=== PATIENT | female | born 1950 | race Caucasian/White ===

== ENCOUNTER 2018-01-06 17:39 | Inpatient (IN) | payer OTHER ==
[2018-01-06 18:56] LABS: BASO % 0.8 % (0-2.0); EOS % 3.3 % (0-4.5); HEMATOCRIT 40.8 % (32.4-45.2); HEMOGLOBIN 13.7 GM/dL (10.7-15.3); LYMPH % 22.5 % (8-40); MCH 26.3 pg (25.7-33.7); MCHC 33.7 g/dl (32.0-36.0); MEAN CELL VOLUME 78.2 fl (80-96); MEAN PLT VOLUME 9.4 fl (7.5-11.1); MONO % 6.6 % (3.8-10.2); NEUT % 66.8 % (42.8-82.8); PLATELET COUNT 283 K/MM3 (134-434); RBC 5.21 M/mm3 (3.60-5.2); RDW 12.9 % (11.6-15.6); WHITE BLOOD COUNT 10.5 K/mm3 (4.0-10.0)
--- NOTE | 2018-01-06 19:16 | PDOC ---
History of Present Illness - General Chief Complaint: Chest Pain Stated Complaint: CHEST PAIN Time Seen by Provider: 01/06/18 18:02 History Source: Patient Exam Limitations: No Limitations - History of Present Illness Initial Comments: 01/06/18 19:17 67F with pmh of Diabetes, cholecystectomy and HTN presents with 3 episodes of epigastric pain for the past 3 days. The pain comes and goes after a few minutes. LAst one was around 3-4 am The pain radiates up from the epigastrium to the lower jaw. Never had those symptoms before. Currently asymptomatic. 01/06/18 20:12 Past History - Past Medical History Allergies/Adverse Reactions: Allergies Allergy/AdvReac Type Severity Reaction Status Date / Time No Known Drug Allergies Allergy Verified 11/18/11 14:26 SHRIMP Allergy Intermediate Swelling Uncoded 11/15/11 08:33 Home Medications: Ambulatory Orders Aspirin [Jewels Chewable] 81 mg PO DAILY 01/06/18 Atenolol/Chlorthalidone [Atenolol-Chlorthalidone 50-25] 1 each PO DAILY Diclofenac Epolamine [Flector] 1 each TP BID 01/06/18 Losartan Potassium [Cozaar -] 100 mg PO DAILY 01/06/18 Rosuvastatin [Crestor -] 10 mg PO DAILY 01/06/18 Vitamin B Complex 1 each PO DAILY 01/06/18 Anemia: No Asthma: No Cancer: No Cardiac Disorders: No CVA: No COPD: No CHF: No Dementia: No Diabetes: Yes (NIDDM) GI Disorders: No Disorders: No HTN: Yes Hypercholesterolemia: Yes Liver Disease: No Seizures: No Thyroid Disease: No - Surgical History Abdominal Surgery: No Appendectomy: No Cardiac Surgery: No Cholecystectomy: Yes Lung Surgery: No Neurologic Surgery: No Orthopedic Surgery: No - Suicide/Smoking/Psychosocial Hx Smoking History: Never smoked Have you smoked in the past 12 months: No Hx Alcohol Use: No Drug/Substance Use Hx: No Substance Use Type: None Hx Substance Use Treatment: No Cardiac Specific PMH - Complaint Specific PMHX Pacemaker: No Review of Systems - Review of Systems Able to Perform ROS?: Yes Is the patient limited Eritrean proficient: No Constitutional: No: Symptoms Reported HEENTM: No: Symptoms Reported Respiratory: No: Symptoms reported Cardiac (ROS): No: Symptoms Reported ABD/GI: Yes: See HPI : No: Symptoms Reported Musculoskeletal: No: Symptoms Reported Integumentary: No: Symptoms Reported Neurological: No: Symptoms reported All Other Systems: Reviewed and Negative *Physical Exam - Vital Signs Last Vital Signs Temp Pulse Resp BP Pulse Ox 98 F 58 L 18 136/90 99 01/06/18 17:57 01/06/18 17:57 01/06/18 17:57 01/06/18 17:57 01/06/18 17:57 - Physical Exam General Appearance: Yes: Nourished, Appropriately Dressed, Apparent Distress HEENT: positive: EOMI, EDWAR, Normal ENT Inspection Respiratory/Chest: positive: Lungs Clear, Normal Breath Sounds. negative: Chest Tender, Respiratory Distress Cardiovascular: positive: Regular Rate, S1, S2, Bradycardia Gastrointestinal/Abdominal: positive: Normal Bowel Sounds, Flat, Soft. negative : Tender Musculoskeletal: positive: Normal Inspection Extremity: positive: Normal Capillary Refill, Normal Inspection, Normal Range of Motion Heart Score/ECG Review - History History: Slightly suspicious - Electrocardiogram EKG: Normal - Age Age: >/= 65 - Risk Factors Risk Factors Heart Score: Yes Hx Hypercholesterolemia, Yes Hx Hypertension, Yes Hx Diabetes Based on the list above the patient has:: >/=3 risk factors or Hx atherosclerotic disease - Troponin Troponin: </= normal limit - Score Heart Score - Total: 4 ED Treatment Course - LABORATORY CBC & Chemistry Diagram: 01/06/18 18:43 01/06/18 18:51 - ADDITIONAL ORDERS Additional order review: Laboratory Results 01/06/18 01/06/18 18:51 18:43 WBC 10.5 H RBC 5.21 H Hgb 13.7 Hct 40.8 D MCV 78.2 L MCH 26.3 MCHC 33.7 RDW 12.9 D Plt Count 283 MPV 9.4 Absolute Neuts (auto) 7.0 Neutrophils % 66.8 Lymphocytes % 22.5 D Monocytes % 6.6 Eosinophils % 3.3 Basophils % 0.8 Nucleated RBC % 0 Sodium 142 Potassium 3.6 Chloride 102 Carbon Dioxide 31 Anion Gap 9 BUN 23 H Creatinine 0.7 Creat Clearance w eGFR > 60 Random Glucose 79 Calcium 10.1 Total Bilirubin 0.3 AST 19 ALT 24 Alkaline Phosphatase 93 Troponin I < 0.02 Total Protein 8.4 H Albumin 3.9 01/06/18 18:43 RBC 5.21 H MCV 78.2 L MCHC 33.7 RDW 12.9 D MPV 9.4 Neutrophils % 66.8 Lymphocytes % 22.5 D Monocytes % 6.6 Eosinophils % 3.3 Basophils % 0.8 - RADIOLOGY Radiology Studies Ordered: Category Date Time Status CHEST PA & LAT [RAD] Stat Radiology 01/06/18 18:41 Taken Medical Decision Making - Medical Decision Making 01/06/18 19:48 dyspepsia vs GERD vs mi vs gallstones. EKG: sinus bradycardia All labs WNL. Bedside US , no gallbladder, previously surgically removed due to gallstones. 01/06/18 21:34 Normal chest xray. Will admit to [facility] obs due to heart score of 4. 01/06/18 21:36 *DC/Admit/Observation/Transfer Diagnosis at time of Disposition: Atypical chest pain - Discharge Dispostion Decision to Admit order: Yes Decision to Admit order Date/Time: Decision to Admit Order Category Date Time Status Decision to Admit to Hospital Routine Admission 01/06/18 21:37 Active - Referrals - Patient Instructions - Post Discharge Activity
[2018-01-06 19:21] LABS: ALBUMIN 3.9 g/dl (3.4-5.0); ANION GAP 9 (8-16); BILIRUBIN,TOTAL 0.3 mg/dL (0.2-1.0); BLOOD UREA NITROGEN 23 mg/dL (7-18); CALCIUM 10.1 mg/dL (8.5-10.1); CHLORIDE 102 mmol/L (98-107); CO2 31 mmol/L (21-32); CREATININE 0.7 mg/dL (0.55-1.02); GLUCOSE,RANDOM 79 mg/dL (74-106); POTASSIUM 3.6 mmol/L (3.5-5.1); SGOT/AST 19 U/L (15-37); SGPT/ALT 24 U/L (12-78); SODIUM 142 mmol/L (136-145); TOT PROT 8.4 g/dl (6.4-8.2)
[2018-01-06 19:23] LABS: ALK PHOS 93 U/L (45-117)
--- NOTE | 2018-01-06 22:48 | HP ---
CHIEF COMPLAINT: Epigastric Pain HISTORY OF PRESENT ILLNESS: This is a 67 y/o woman with a PMHx of HTN, HLD. Who presents to the ED with epigastric pain radiating to her jaw 2 days ago. Patient reports being awakened out of sleep with chest pressure that radiated too her jaw, head and mid back now resolved. Patient denies fever, chills, cough, SOB, n/V/D, constipation, dysuria. ER course was notable for: (1) Troponin I < 0.02 (2) Chest Xray- image no infiltrate or effusion (3) Recent Travel: None PAST MEDICAL HISTORY: See HPI PAST SURGICAL HISTORY: Salpingo-oophorectomy Hysterectomy SubUrethral Sling Cystocele Repair Gallstone removal Social History: Smoking: Never Alcohol: None Drugs: None Lives with spouse, Independent Family History: Allergies No Known Drug Allergies Allergy (Verified 11/18/11 14:26) SHRIMP Allergy (Intermediate, Uncoded 11/15/11 08:33) Swelling TONGUE ITCHY AND SWELLING HOME MEDICATIONS: Home Medications Medication Instructions Recorded Aspirin [Jewels Chewable] 81 mg PO DAILY 01/06/18 Atenolol/Chlorthalidone 1 each PO DAILY 01/06/18 [Atenolol-Chlorthalidone 50-25] Diclofenac Epolamine [Flector] 1 each TP BID 01/06/18 Losartan Potassium [Cozaar -] 100 mg PO DAILY 01/06/18 Rosuvastatin [Crestor -] 10 mg PO DAILY 01/06/18 Vitamin B Complex 1 each PO DAILY 01/06/18 REVIEW OF SYSTEMS CONSTITUTIONAL: Absent: fever, chills, diaphoresis, generalized weakness, malaise, loss of appetite, weight change HEENT: Absent: rhinorrhea, nasal congestion, throat pain, throat swelling, difficulty swallowing, mouth swelling, ear pain, eye pain, visual changes CARDIOVASCULAR: chest pain Absent: syncope, palpitations, irregular heart rate, lightheadedness, peripheral edema RESPIRATORY: Absent: cough, shortness of breath, dyspnea with exertion, orthopnea, wheezing, stridor, hemoptysis GASTROINTESTINAL: abdominal pain Absent: abdominal distension, nausea, vomiting, diarrhea, constipation, melena, hematochezia GENITOURINARY: Absent: dysuria, frequency, urgency, hesitancy, hematuria, flank pain, genital pain MUSCULOSKELETAL: Absent: myalgia, arthralgia, joint swelling, back pain, neck pain SKIN: Absent: rash, itching, pallor HEMATOLOGIC/IMMUNOLOGIC: Absent: easy bleeding, easy bruising, lymphadenopathy, frequent infections ENDOCRINE: Absent: unexplained weight gain, unexplained weight loss, heat intolerance, cold intolerance NEUROLOGIC: Absent: headache, focal weakness or paresthesias, dizziness, unsteady gait, seizure, mental status changes, bladder or bowel incontinence PSYCHIATRIC: Absent: anxiety, depression, suicidal or homicidal ideation, hallucinations. PHYSICAL EXAMINATION Vital Signs - 24 hr 01/06/18 17:57 Temperature 98 F Pulse Rate 58 L Respiratory 18 Rate Blood Pressure 136/90 O2 Sat by Pulse 99 Oximetry (%) GENERAL: Awake, alert, and fully oriented, in no acute distress. HEAD: Normal with no signs of trauma. EYES: Pupils equal, round and reactive to light, extraocular movements intact, sclera anicteric, conjunctiva clear. No lid lag. EARS, NOSE, THROAT: Ears normal, nares patent, oropharynx clear without exudates. Moist mucous membranes. NECK: Normal range of motion, supple without lymphadenopathy, JVD, or masses. LUNGS: Breath sounds equal, clear to auscultation bilaterally. No wheezes, and no crackles. No accessory muscle use. HEART: Regular rate and rhythm, normal S1 and S2 without murmur, rub or gallop. CP non-reproducible ABDOMEN: Soft, nontender, not distended, normoactive bowel sounds, no guarding, no rebound, no masses. No hepatomegaly or splenomegaly. MUSCULOSKELETAL: Normal range of motion at all joints. No bony deformities or tenderness. No CVA tenderness. UPPER EXTREMITIES: 2+ pulses, warm, well-perfused. No cyanosis. No clubbing. No peripheral edema. LOWER EXTREMITIES: 2+ pulses, warm, well-perfused. No calf tenderness. No peripheral edema. NEUROLOGICAL: Cranial nerves II-XII intact. Normal speech. Normal gait. PSYCHIATRIC: Cooperative. Good eye contact. Appropriate mood and affect. SKIN: Warm, dry, normal turgor, no rashes or lesions noted, normal capillary refill. Laboratory Results - last 24 hr 01/06/18 01/06/18 18:43 18:51 WBC 10.5 H RBC 5.21 H Hgb 13.7 Hct 40.8 D MCV 78.2 L MCH 26.3 MCHC 33.7 RDW 12.9 D Plt Count 283 MPV 9.4 Absolute Neuts (auto) 7.0 Neutrophils % 66.8 Lymphocytes % 22.5 D Monocytes % 6.6 Eosinophils % 3.3 Basophils % 0.8 Nucleated RBC % 0 Sodium 142 Potassium 3.6 Chloride 102 Carbon Dioxide 31 Anion Gap 9 BUN 23 H Creatinine 0.7 Creat Clearance w eGFR > 60 Random Glucose 79 Calcium 10.1 Total Bilirubin 0.3 AST 19 ALT 24 Alkaline Phosphatase 93 Troponin I < 0.02 Total Protein 8.4 H Albumin 3.9 ASSESSMENT/PLAN: This is a 67 y/o woman placed in Tele Observation for Chest Pain r/o ACS for further evaluation of their emergent condition. Plan: FEN - PO fluids as tolerated - Replete lytes prn - Low Na Diet DVT ppx - OOB - SCDs - Consider AC if LOS > 48 hrs Code Status: Full Code Dispo: Observation Problem List - Problem (1) Atypical chest pain Assessment/Plan: - Likely secondary to Acid Reflux vs ACS - HEART Score 4 - Continue Cardiac monitoring - Serial Enzymes - Appreciate Cardiology consult - Asa - Echo - Lipid Panel in am - HgbA1C Code(s): R07.89 - OTHER CHEST PAIN (2) HTN (hypertension) Assessment/Plan: - sub optimal - Likely secondary to dehydration - Monitor BP - Hold home med secondary to hypotension and bradycardia - Will give NS 250ml bolus and have day team reassess Code(s): I10 - ESSENTIAL (PRIMARY) HYPERTENSION (3) HLD (hyperlipidemia) Assessment/Plan: - stable - Continue home med Code(s): E78.5 - HYPERLIPIDEMIA, UNSPECIFIED Visit type - Emergency Visit Emergency Visit: Yes ED Registration Date: 01/06/18 Care time: The patient presented to the Emergency Department on the above date and was hospitalized for further evaluation of their emergent condition. - New Patient This patient is new to me today: Yes Date on this admission: 01/06/18 - Critical Care Critical Care patient: No Hospitalist Screening - Colonoscopy Questionnaire Colonoscopy Questionnaire: Colonoscopy Questionnaire - Patient: 50 - 75 years old and never had a screening colonoscopy: No History of colon or rectal polyps, or CA: No History of IBD, Crohn's disease or UC: No History of abdominal radiation therapy as a child: No - Relative: 1 with colon or rectal CA, or polyps at age 60 or younger: No Colon or rectal CA diagnosed at age 45 or younger: No Multiple relatives with colon or rectal CA: No - Outcome: Screening Result: Negative Screen
[2018-01-06] MEDS ORDERED: ASPIRIN 81 MG CHEWABLE TABLETS PO ONE (23:37)
--- NOTE | 2018-01-06 23:38 | PDOC ---
Attending Attestation - Resident Resident Name: Babak Vazquez - ED Attending Attestation I have performed the following: I have examined & evaluated the patient, The case was reviewed & discussed with the resident, I agree w/resident's findings & plan, Exceptions are as noted - HPI HPI: 01/06/18 23:33 67 yo F with h/o DM HTN here with /co epigastric pain radiating across her chest intermittent for the last few days. no sob. no n/v no f/c no mod factors. has had a cardiac work up over 3 years ago. ( saw dr. salguero). family h/o MA in two uncles. no n/v. prior cholecystectomy - Physicial Exam PE: 01/06/18 23:36 awake alert lungs clear bilaterally heart rrr no mrg. abd soft mild epigastric ttp. no rebound no guarding. ext wwp. no edema. no calf tenderness. pulses symmetric - Medical Decision Making 01/06/18 23:36 differential atypical angina, gerd, pancreatitis, infeciton such as gastritis, other lung pathology. plan cxr ekg trop aspirin. if negative. consider telemetry observation to r/o MA for acs. 01/06/18 23:38 pt workup negative thus far. june nfree here. due to risk factors, will observe on tele.
[2018-01-06] MEDS ORDERED: ASPIRIN 81 MG CHEWABLE TABLETS ONE (23:42)
[2018-01-07 04:36] VITALS: BMI 22.1
[2018-01-07] MEDS ORDERED: SODIUM CHLORIDE 250 ML IV STA (04:47)
[2018-01-07 07:21] LABS: BASO % 0.6 % (0-2.0); EOS % 4.7 % (0-4.5); HEMATOCRIT 35.5 % (32.4-45.2); HEMOGLOBIN 12.1 GM/dL (10.7-15.3); MCH 26.6 pg (25.7-33.7); MCHC 34.1 g/dl (32.0-36.0); MEAN CELL VOLUME 78.2 fl (80-96); MEAN PLT VOLUME 9.6 fl (7.5-11.1); MONO % 8.2 % (3.8-10.2); NEUT % 55.5 % (42.8-82.8); PLATELET COUNT 225 K/MM3 (134-434); RBC 4.54 M/mm3 (3.60-5.2); RDW 12.9 % (11.6-15.6)
[2018-01-07 07:43] LABS: ANION GAP 8 (8-16); BLOOD UREA NITROGEN 15 mg/dL (7-18); CHLORIDE 103 mmol/L (98-107); CO2 32 mmol/L (21-32); CREATININE 0.6 mg/dL (0.55-1.02); GLUCOSE,RANDOM 64 mg/dL (74-106); MAGNESIUM 1.9 mg/dL (1.8-2.4); PHOSPHOROUS 3.4 mg/dL (2.5-4.9); POTASSIUM 3.3 mmol/L (3.5-5.1); SODIUM 143 mmol/L (136-145)
[2018-01-07 07:58] LABS: CHOLESTEROL 166 mg/dL (50-200); HDL CHOLESTEROL 42 mg/dL (40-60); TRIGLYCERIDES 189 mg/dL (35-160)
--- NOTE | 2018-01-07 08:52 | PN ---
Progress Note, Physician History of Present Illness: 67F with pmh of Diabetes, cholecystectomy and HTN presents with 3 episodes of epigastric pain for the past 3 days. The pain comes and goes after a few minutes. LAst one was around 3-4 am The pain radiates up from the epigastrium to the lower jaw. Never had those symptoms before. Currently asymptomatic. - Current Medication List Current Medications: Active Medications Aspirin (Asa -) 81 mg PO DAILY KALYANI Multivitamins (Total B With C -) 1 each PO DAILY KALYANI Rosuvastatin Calcium (Crestor -) 10 mg PO DAILY KALYANI - Objective Vital Signs: Vital Signs Temperature 97.9 F 01/07/18 04:29 Pulse Rate 52 L 01/07/18 04:29 Respiratory Rate 18 01/07/18 04:29 Blood Pressure 137/74 01/07/18 04:29 O2 Sat by Pulse Oximetry (%) 97 01/07/18 03:25 Cardiovascular: Yes: S1, S2 Respiratory: Yes: Regular, CTA Bilaterally Gastrointestinal: Yes: Normal Bowel Sounds, Soft. No: Tenderness Edema: No Labs: CBC, BMP 01/07/18 06:00 01/07/18 06:00 Problem List - Problems (1) Atypical chest pain Assessment/Plan: - Likely secondary to Acid Reflux - r/o ACS - HEART Score 4 - Continue Cardiac monitoring - Serial Enzymes - Cardiology consult - Asa - PPI - Echo - Lipid Panel - HgbA1C Code(s): R07.89 - OTHER CHEST PAIN (2) HLD (hyperlipidemia) Assessment/Plan: - stable - Continue home med Code(s): E78.5 - HYPERLIPIDEMIA, UNSPECIFIED (3) HTN (hypertension) Assessment/Plan: - sub optimal==better now - Off metoprolol and losartin - Likely secondary to dehydration - Monitor BP - Hold home med secondary to hypotension and bradycardia - given NS 250ml bolus Code(s): I10 - ESSENTIAL (PRIMARY) HYPERTENSION
[2018-01-07] MEDS ORDERED: PT OWN MED DRAWER 7, Y5N ONE (09:06)
[2018-01-07] MEDS: VITAMIN B COMPLEX W/C COMBO TABLET (FP) PO SCH (09:33)
[2018-01-07] MEDS: ASPIRIN 81 MG CHEWABLE TABLETS PO SCH (09:33)
[2018-01-07] MEDS: ROSUVASTATIN CA 10 MG TABLET (FP) PO SCH (09:33)
--- NOTE | 2018-01-07 17:19 | CON.CARD ---
Consult Consult Specialty:: Cardiology Referred by:: Dr. Vargas Reason for Consultation:: chest pain - History of Present Illness Chief Complaint: chest pain History of Present Illness: 67 year old woman pmh HTN< DMII, admitted with c/o epigastric pain radiating to chest L jaw and L arm for the past few days. Pt seen and examined today in nad. states the pain comes on only when lying in bed. denies any symptoms with walking. no sob, palpitations, pnd, orthopnea, or le edema. no lightheadedness dizziness, syncope or near syncope. states she had a stress test approx 3 years ago that was normal. - History Source History Provided By: Patient, Family Member Limitations to Obtaining History: Language Barrier - Past Medical History Cardio/Vascular: Yes: HTN Endocrine: Yes: Diabetes Mellitus - Alcohol/Substance Use Hx Alcohol Use: No - Smoking History Smoking history: Never smoked Have you smoked in the past 12 months: No - Social History Usual Living Arrangement: With Child ADL: Independent History of Recent Travel: No Home Medications - Allergies Allergies/Adverse Reactions: Allergies Allergy/AdvReac Type Severity Reaction Status Date / Time No Known Drug Allergies Allergy Verified 11/18/11 14:26 SHRIMP Allergy Intermediate Swelling Uncoded 11/15/11 08:33 - Home Medications Home Medications: Ambulatory Orders Aspirin [Jewels Chewable] 81 mg PO DAILY 01/06/18 Atenolol/Chlorthalidone [Atenolol-Chlorthalidone 50-25] 1 each PO DAILY Diclofenac Epolamine [Flector] 1 each TP BID 01/06/18 Losartan Potassium [Cozaar -] 100 mg PO DAILY 01/06/18 Rosuvastatin [Crestor -] 10 mg PO DAILY 01/06/18 Vitamin B Complex 1 each PO DAILY 01/06/18 Family Disease History - Family Disease History Family History: Denies Review of Systems - Review of Systems Constitutional: denies: No Symptoms, Chills, Diaphoresis, Fever, Lethargy, Loss of Appetite, Malaise, Night Sweats, Unintentional Wgt. Loss, Weakness, Other Eyes: denies: No Symptoms, Blind Spots, Blurred Vision, Double Vision, Eye Pain , Floaters, Photophobia, Recent Change in Vision, Other HENT: denies: No Symptoms, Difficult Swallowing, Ear Discharge, Ear Pain, Epistaxis, Gingival Bleeding, Hearing Loss, Mouth Swelling, Nasal Congestion, Ocular Prosthesis, Throat Pain, Toothache, Ringing in Ears, Other Neck: denies: No Symptoms, Decreased ROM, Lumps, Pain on Movement, Stiffness, Swollen Glands, Tenderness, Other Cardiovascular: reports: Chest Pain Respiratory: denies: No Symptoms, Cough, Exercise Intolerance, Hemoptysis, Orthopnea, PND, Snoring, SOB, SOB on Exertion, Wheezing, Other Gastrointestinal: denies: No Symptoms, Abdominal Pain, Bloating, Constipation, Diarrhea, Dysphagia, Indigestion, Melena, Nausea, Rectal Bleeding, Vomiting, Vomiting Blood, Other Genitourinary: denies: No Symptoms, Burning, Discharge, Dysuria, Flank Pain, Frequency, Hematuria, Incontinence, Lesions, Menses, Pain, Testicular Mass, Testicular Pain, Testicular Swelling, Urgency, Vaginal Bleeding, Other Breasts: denies: No Symptoms Reported, See HPI, Breast Implants, Discharge from Nipple, Lumps, Pain, Skin Changes, Other Musculoskeletal: denies: No Symptoms, Back Pain, Crepitus, Decreased ROM, Extremity Pain, Joint Pain, Joint Swelling, Muscle Pain, Muscle Cramps, Muscle Weakness, Other Integumentary: denies: No Symptoms, Blister, Bruising, Change in Color, Eczema, Erythema, Incision, Lesions, Lump, Pallor, Pruritis, Rash, Wound, Other Neurological: denies: No Symptoms, Change in LOC, Change in Speech, Confusion, Dizziness, Headache, Incoordination, Numbness, Parasthesia, Pre-Existing Deficit , Seizure, Syncope, Tremors, Unsteady Gait, Weakness, Other Endocrine: denies: No Symptoms, Excessive Sweating, Flushing, Increased Hunger, Increased Thirst, Intolerance to Cold, Intolerance to Heat, Unexplained Weight Gain, Unexplained Weight Loss, Other Hematology/Lymphatic: denies: No Symptoms, Easily Bruised, Excessive Bleeding, Swollen Glands, Other Psychiatric: denies: No Symptoms, Altered Sleep Pattern, Anxiety, Depression, Hallucinations, Panic, Paranoia, Suicidal, Other - Risk Factors Known Risk Factors: Yes: Diabetes Mellitus, Hypertension Vital Signs: Vital Signs Temperature 98.3 F 01/07/18 14:00 Pulse Rate 62 01/07/18 14:00 Respiratory Rate 18 01/07/18 14:00 Blood Pressure 122/63 01/07/18 14:00 O2 Sat by Pulse Oximetry (%) 98 01/07/18 10:00 Constitutional: Yes: Well Nourished, No Distress, Calm Eyes: Yes: WNL, Conjunctiva Clear, EOM Intact, PERRL HENT: Yes: WNL, Atraumatic, Normocephalic Neck: Yes: WNL, Supple, Trachea Midline Respiratory: Yes: WNL, Regular, CTA Bilaterally. No: Rales, Rhonchi, Wheezes Gastrointestinal: Yes: WNL, Normal Bowel Sounds, Soft. No: Distention, Tenderness Renal/: Yes: WNL Cardiovascular: Yes: WNL, Regular Rate and Rhythm. No: Bradycardia, Tachycardia , Pulse Irregular, Gallop, Rub, Varicosities JVD: No Carotid Bruit: No PMI: Non-Displaced Heart Sounds: Yes: S1, S2. No: Split S2, S3, S4, Clicks, Gallop, Rub, Bruit Murmur: No: Systolic Murmur, Diastolic Murmur Musculoskeletal: Yes: WNL Extremities: Yes: WNL Edema: No Peripheral Pulses WNL: Yes Peripheral Pulses: 2+ Left Doralis Pedis, 2+ Right Dorsalis Pedis Integumentary: Yes: WNL Neurological: Yes: WNL, Alert, Oriented ...Motor Strength: WNL Psychiatric: Yes: WNL, Alert, Oriented - Other Data Labs, Other Data: CBC, BMP 01/07/18 06:00 01/07/18 06:00 Troponin, BNP 01/06/18 01/07/18 01/07/18 18:51 01:26 06:00 Troponin I < 0.02 < 0.02 < 0.02 Troponin, BNP 01/06/18 01/07/18 01/07/18 18:51 01:26 06:00 Troponin I < 0.02 < 0.02 < 0.02 not in emr, will report separately, reportedly no ischemia Imaging - Results Chest X-ray: Report Reviewed, Image Reviewed EKG: Report Reviewed, Image Reviewed Other: Report Reviewed, Image Reviewed (tele-nsr, sb, artifact) Assessment/Plan 67 year old woman pmh HTN< DMII, admitted with c/o epigastric pain radiating to chest L jaw and L arm for the past few days. Pt seen and examined today in nad. states the pain comes on only when lying in bed. denies any symptoms with walking. no sob, palpitations, pnd, orthopnea, or le edema. no lightheadedness dizziness, syncope or near syncope. states she had a stress test approx 3 years ago that was normal. chest pain-atypical but with mult risk factors and radiation to jaw and L arm and pt does very little activity, no exercise thus difficult to fully assess -cardiac enzymes wnl x 3 -no sig events on telemetry -no chest pain since admission -would recc exercise nuclear stress test on tuesday and echo -keep npo after midnight tuesday night for stress test tuesday -cont asa and statin -no bblocker for sinus calos -cont tele
--- NOTE | 2018-01-07 19:01 | EKG ---
Test Reason : Blood Pressure : / mmHG Vent. Rate : 051 BPM Atrial Rate : 051 BPM P-R Int : 150 ms QRS Dur : 084 ms QT Int : 434 ms P-R-T Axes : 018 -27 -02 degrees QTc Int : 400 ms SINUS BRADYCARDIA LOW VOLTAGE QRS CANNOT RULE OUT ANTERIOR INFARCT , AGE UNDETERMINED ABNORMAL ECG WHEN COMPARED WITH ECG OF 13-NOV-2011 10:24, NO SIGNIFICANT CHANGE WAS FOUND Confirmed by MD DUKE, DENISE ([id number]) on 01/07/2018 7:01:23 PM Referred By: Confirmed By:DENISE WALL MD
--- NOTE | 2018-01-08 08:27 | PN ---
Progress Note, Physician - Current Medication List Current Medications: Active Medications Aspirin (Asa -) 81 mg PO DAILY [facility] Last Admin: 01/07/18 09:33 Dose: 81 mg Multivitamins (Total B With C -) 1 each PO DAILY [facility] Last Admin: 01/07/18 09:33 Dose: 1 each Rosuvastatin Calcium (Crestor -) 10 mg PO DAILY [facility] Last Admin: 01/07/18 09:33 Dose: 10 mg - Objective Vital Signs: Vital Signs Temperature 98 F 01/08/18 05:51 Pulse Rate 54 L 01/08/18 05:51 Respiratory Rate 16 01/08/18 05:51 Blood Pressure 106/58 01/08/18 05:51 O2 Sat by Pulse Oximetry (%) 99 01/08/18 05:00 Cardiovascular: Yes: Regular Rate and Rhythm Respiratory: Yes: Regular, CTA Bilaterally Gastrointestinal: Yes: Normal Bowel Sounds, Soft Labs: CBC, BMP 01/07/18 06:00 01/07/18 06:00 Problem List - Problems (1) Atypical chest pain Assessment/Plan: - Likely secondary to Acid Reflux - r/o ACS - HEART Score 4 - Continue Cardiac monitoring - Serial Enzymes - Cardiology consult - Asa - PPI - Echo and stress test - Lipid Panel - HgbA1C Code(s): R07.89 - OTHER CHEST PAIN (2) HLD (hyperlipidemia) Assessment/Plan: - stable - Continue home med Code(s): E78.5 - HYPERLIPIDEMIA, UNSPECIFIED (3) HTN (hypertension) Assessment/Plan: - sub optimal==better now - Off metoprolol and losartin - Likely secondary to dehydration - Monitor BP - Hold home med secondary to hypotension and bradycardia - given NS 250ml bolus Code(s): I10 - ESSENTIAL (PRIMARY) HYPERTENSION
[2018-01-08] MEDS: ROSUVASTATIN CA 10 MG TABLET (FP) PO SCH (09:39)
[2018-01-08] MEDS: ASPIRIN 81 MG CHEWABLE TABLETS PO SCH (09:40)
[2018-01-08] MEDS: VITAMIN B COMPLEX W/C COMBO TABLET (FP) PO SCH (10:14)
--- NOTE | 2018-01-08 16:52 | PN ---
Progress Note, Physician History of Present Illness: seen and examined today in [facility]. no new complaints. no overnight events. - Current Medication List Current Medications: Active Medications Aspirin (Asa -) 81 mg PO DAILY [facility] Last Admin: 01/08/18 09:40 Dose: 81 mg Multivitamins (Total B With C -) 1 each PO DAILY [facility] Last Admin: 01/08/18 10:14 Dose: 1 each Rosuvastatin Calcium (Crestor -) 10 mg PO DAILY [facility] Last Admin: 01/08/18 09:39 Dose: 10 mg - Objective Vital Signs: Vital Signs Temperature 97.8 F 01/08/18 13:56 Pulse Rate 61 01/08/18 13:56 Respiratory Rate 16 01/08/18 13:56 Blood Pressure 98/56 01/08/18 13:56 O2 Sat by Pulse Oximetry (%) 99 01/08/18 09:37 Constitutional: Yes: No Distress, Calm Eyes: Yes: Conjunctiva Clear, EOM Intact HENT: Yes: Atraumatic, Normocephalic Neck: Yes: Supple, Trachea Midline Cardiovascular: Yes: Regular Rate and Rhythm, S1, S2. No: Bradycardia, Tachycardia, Pulse Irregular, Bruit, JVD, Gallop, Murmur, Rub, S3, S4, Varicosities Respiratory: Yes: Regular, CTA Bilaterally. No: Rales, Rhonchi, Wheezes Gastrointestinal: Yes: Normal Bowel Sounds, Soft. No: Distention, Tenderness Genitourinary: Yes: WNL Breast(s): Yes: WNL Musculoskeletal: Yes: WNL Extremities: Yes: WNL Edema: No Peripheral Pulses WNL: No Peripheral Pulses: Left Doralis Pedis: 2+, Right Dorsalis Pedis: 2+ Integumentary: Yes: WNL Neurological: Yes: Alert, Oriented Psychiatric: Yes: Alert, Oriented Labs: CBC, BMP 01/07/18 06:00 01/07/18 06:00 - ....Imaging Chest X-ray: Report Reviewed, Image Reviewed EKG: Report Reviewed, Image Reviewed Other: Report Reviewed, Image Reviewed (tele-NSR, artifact which is reproduced by pt lifting her R arm especially when using her cell phone, witnessed and reproduced at bedside. No arrhythmias recorded.) Assessment/Plan 67 year old woman pmh HTN< DMII, admitted with c/o epigastric pain radiating to chest L jaw and L arm for the past few days. Pt seen and examined today in [facility]. states the pain comes on only when lying in bed. denies any symptoms with walking. no sob, palpitations, pnd, orthopnea, or le edema. no lightheadedness dizziness, syncope or near syncope. states she had a stress test approx 3 years ago that was normal. chest pain-atypical but with mult risk factors and radiation to jaw and L arm and pt does very little activity, no exercise thus difficult to fully assess -cardiac enzymes wnl x 3 -no sig events on telemetry -no chest pain since admission -plan is for exercise nuclear stress test tomorrow and echo -keep npo after midnight tonight for stress test tomorrow -cont asa and statin -no bblocker for sinus calos -cont tele tele-NSR, artifact which is reproduced by pt lifting her R arm especially when using her cell phone, witnessed and reproduced at bedside. No arrhythmias recorded.
--- NOTE | 2018-01-09 08:37 | PN ---
Progress Note, Physician - Current Medication List Current Medications: Active Medications Aspirin (Asa -) 81 mg PO DAILY [facility] Last Admin: 01/08/18 09:40 Dose: 81 mg Multivitamins (Total B With C -) 1 each PO DAILY [facility] Last Admin: 01/08/18 10:14 Dose: 1 each Rosuvastatin Calcium (Crestor -) 10 mg PO DAILY [facility] Last Admin: 01/08/18 09:39 Dose: 10 mg - Objective Vital Signs: Vital Signs Temperature 97.9 F 01/09/18 06:00 Pulse Rate 51 L 01/09/18 06:00 Respiratory Rate 16 01/09/18 06:00 Blood Pressure 109/49 01/09/18 06:00 O2 Sat by Pulse Oximetry (%) 97 01/08/18 21:00 Cardiovascular: Yes: Regular Rate and Rhythm Respiratory: Yes: Regular, CTA Bilaterally Gastrointestinal: Yes: Normal Bowel Sounds, Soft Labs: CBC, BMP 01/07/18 06:00 01/07/18 06:00 Problem List - Problems (1) Atypical chest pain Assessment/Plan: - Likely secondary to Acid Reflux - r/o ACS - HEART Score 4 - Continue Cardiac monitoring - Serial Enzymes - Cardiology consult - Asa - PPI - Echo and stress test - Lipid Panel - HgbA1C Code(s): R07.89 - OTHER CHEST PAIN (2) HLD (hyperlipidemia) Assessment/Plan: - stable - Continue home med Code(s): E78.5 - HYPERLIPIDEMIA, UNSPECIFIED (3) HTN (hypertension) Assessment/Plan: - sub optimal==better now - Off metoprolol and losartin - Likely secondary to dehydration - Monitor BP - Hold home med secondary to hypotension and bradycardia - given NS 250ml bolus Code(s): I10 - ESSENTIAL (PRIMARY) HYPERTENSION (4) Hypokalemia Assessment/Plan: cmp Code(s): E87.6 - HYPOKALEMIA
[2018-01-09] MEDS: ASPIRIN 81 MG CHEWABLE TABLETS PO SCH (09:22)
[2018-01-09] MEDS: ROSUVASTATIN CA 10 MG TABLET (FP) PO SCH (09:22)
[2018-01-09] MEDS: VITAMIN B COMPLEX W/C COMBO TABLET (FP) PO SCH (09:22)
--- NOTE | 2018-01-09 11:33 | ECHO ---
Name: ARMANI DRISCOLL Exam:Adult Echocardiogram Study Date: 01/09/2018 07:39 AM Age: 67 yrs Reason For Study: Chest pain Height: 59 in Weight: 108 lb BSA: 1.4 m2 MMode/2D Measurements & Calculations IVSd: 0.91 cm Ao root diam: 2.4 cm LVIDd: 3.7 cm LA dimension: 3.1 cm LVIDs: 2.0 cm LVPWd: 0.90 cm EDV(Teich): 57.6 ml ESV(Teich): 12.7 ml Doppler Measurements & Calculations MV E max ben: 87.0 cm/sec MR max ben: 260.6 cm/sec MV A max ben: 117.1 cm/sec MR max P.2 mmHg MV E/A: 0.74 MV dec time: 0.40 sec TR max ben: 154.7 cm/sec Med Peak E' Ben: 6.5 cm/sec TR max P.8 mmHg Med E/e': 13.3 Lat Peak E' Ben: 8.7 cm/sec Lat E/e': 10.0 PI Vmax: 142.5 cm/sec Procedure The study was technically adequate with some images being suboptimal in quality. Left Ventricle The left ventricular size, thickness and function are normal. Ejection Fraction = 60-65%. Grade I tia stolic dysfunction, (abnormal relaxation pattern). Right Ventricle The right ventricle is normal in size and function. Atria Normal left and right atrial size and function. Non-dilated IVC 1.53 cm. Mitral Valve The mitral valve is grossly normal. There is trace mitral regurgitation. Tricuspid Valve The tricuspid valve is not well visualized, but is grossly normal. There is trace tricuspid regurgita tion. There was insufficient TR detected to calculate RV systolic pressure. Aortic Valve The aortic valve opens well. The aortic valve is trileaflet. Trace aortic regurgitation. Pulmonic Valve The pulmonic valve is not well visualized. Trace pulmonic valvular regurgitation. Great Vessels The aortic root is normal size. Pericardium/Pleura There is no pericardial effusion. Interpretation Summary There is no comparison study available. The right ventricle is normal in size and function. The left ventricular size, thickness and function are normal Trace aortic regurgitation. There is trace mitral regurgitation. There is trace tricuspid regurgitation. Trace pulmonic valvular regurgitation. Ejection Fraction = 60-65%. Grade I diastolic dysfunction, (abnormal relaxation pattern). Jake Paez MD 01/09/2018 11:32 AM
--- NOTE | 2018-01-09 14:16 | PN ---
Progress Note, Physician Chief Complaint: no new events tele neg History of Present Illness: 67 year old woman pmh HTN< DMII, admitted with c/o epigastric pain radiating to chest L jaw and L arm for the past few days. Pt seen and examined today in [facility]. states the pain comes on only when lying in bed. denies any symptoms with walking. no sob, palpitations, pnd, orthopnea, or le edema. no lightheadedness dizziness, syncope or near syncope. states she had a stress test approx 3 years ago that was normal. hypokalemia repleted. - Current Medication List Current Medications: Active Medications Aspirin (Asa -) 81 mg PO DAILY [facility] Last Admin: 01/09/18 09:22 Dose: Not Given Multivitamins (Total B With C -) 1 each PO DAILY [facility] Last Admin: 01/09/18 09:22 Dose: Not Given Rosuvastatin Calcium (Crestor -) 10 mg PO DAILY [facility] Last Admin: 01/09/18 09:22 Dose: Not Given - Objective Vital Signs: Vital Signs Temperature 97.9 F 01/09/18 09:08 Pulse Rate 59 L 01/09/18 09:08 Respiratory Rate 17 01/09/18 09:08 Blood Pressure 121/62 01/09/18 09:08 O2 Sat by Pulse Oximetry (%) 97 01/09/18 09:00 Constitutional: Yes: No Distress, Calm Eyes: Yes: EOM Intact HENT: Yes: Atraumatic, Normocephalic Neck: Yes: Supple, Trachea Midline Cardiovascular: Yes: Regular Rate and Rhythm Respiratory: Yes: Regular, CTA Bilaterally Gastrointestinal: Yes: Normal Bowel Sounds, Soft Musculoskeletal: Yes: WNL Extremities: Yes: WNL Edema: No Peripheral Pulses WNL: Yes Labs: CBC, BMP 01/07/18 06:00 01/07/18 06:00 Problem List - Problems (1) Atypical chest pain Assessment/Plan: -atypical but with mult risk factors and radiation to jaw and L arm and pt does very little activity, no exercise thus difficult to fully assess -cardiac enzymes wnl x 3 -no sig events on telemetry -no chest pain since admission -plan is for exercise nuclear stress test and echo -cont asa and statin -no bblocker for sinus calos -cont tele Code(s): R07.89 - OTHER CHEST PAIN
[2018-01-09 14:51] VITALS: BP 114/53; PULSE 54; TEMP 97.2
[2018-01-09 16:31] LABS: ALBUMIN 3.3 g/dl (3.4-5.0); ALK PHOS 84 U/L (45-117); ANION GAP 7 (8-16); BILIRUBIN,TOTAL 0.2 mg/dL (0.2-1.0); BLOOD UREA NITROGEN 18 mg/dL (7-18); CALCIUM 9.3 mg/dL (8.5-10.1); CHLORIDE 100 mmol/L (98-107); CO2 32 mmol/L (21-32); CREATININE 0.6 mg/dL (0.55-1.02); GLUCOSE,RANDOM 188 mg/dL (74-106); POTASSIUM 3.4 mmol/L (3.5-5.1); SGOT/AST 12 U/L (15-37); SGPT/ALT 22 U/L (12-78); SODIUM 139 mmol/L (136-145); TOT PROT 7.3 g/dl (6.4-8.2)
== END 2018-01-09 18:37 | disposition home or self-care (01) | DRG 392 ==
LOC: JER 17:39 → JERBED 21:37 → J4S 01-07 04:04 → OBSVTOIN 01-08 08:02
PROVIDERS: ADMIT Internal Medicine; ATTEND Family Medicine
DX: K21.9 Gastro-esophageal reflux disease without esophagitis (principal); R07.89 Other chest pain; E11.9 Type 2 diabetes mellitus without complications; I10 Essential (primary) hypertension; E78.5 Hyperlipidemia, unspecified; E87.6 Hypokalemia; E86.0 Dehydration
CPT/HCPCS: 36415; 71046-TC-FY; 78452-TC; 80048; 80053; 80061; 83721; 83735; 84100; 84484; 85025; 93005; 93010; 93017; 93306-TC; 99285-25; A9502; G0378

== ENCOUNTER 2019-03-28 07:25 | Day surgery (SDC) | payer OTHER ==
[2019-03-26 14:09] VITALS: BMI 22.0
[2019-03-28] MEDS ORDERED: ROPIVACAINE HCL 0.5% 30ML VIAL ONE (08:59)
[2019-03-28] MEDS ORDERED: MIDAZOLAM HCL 2 MG/2 ML SINGLE DOSE VIAL ONE ×2 (09:00)
[2019-03-28] MEDS ORDERED: PROPOFOL 20 ML ONE ×2 (09:52)
[2019-03-28] MEDS ORDERED: ceFAZolin SODIUM 1 GM VIAL IVPB ONE (10:15)
--- NOTE | 2019-03-28 11:10 | HP ---
Satellite [facility] - Chief Complaint Chief Complaint: right shoulder pain - Past Medical History Allergies/Adverse Reactions: Allergies Allergy/AdvReac Type Severity Reaction Status Date / Time No Known Drug Allergies Allergy Verified 03/28/19 07:54 SHRIMP Allergy Intermediate Swelling Uncoded 03/28/19 07:54 salmon Allergy "mouth and Uncoded 03/28/19 07:54 tongue swells" Cardiovascular: Yes: HTN Endocrine: Yes: Diabetes Mellitus - Current Medications Current Medications: Home Medications Medication Instructions Recorded Losartan Potassium [Cozaar -] 100 mg PO DAILY 01/06/18 Rosuvastatin [Crestor -] 10 mg PO DAILY 01/06/18 Aspirin Coated [Ecotrin -] 81 mg PO DAILY 03/26/19 Satellite Physical Exam - Physical Examination Vital Signs: Vital Signs Period Temp Pulse Resp BP Sys/Pinedo Pulse Ox Last 24 Hr 98.7 F-98.7 F 72-72 20-20 162-162/87-87 99 General Appearance: Well Nourished, Well Developed, Alert & Oriented x3 ENT: Clear Lung: Normal air movement Heart: Regular rate & rhythm Extremities: Other (right shoulder- + ttp, decr rom, + neer, + dye, + empty can, nvi, MRI + rct) Neurological: Intact, Alert, Oriented Satellite Impression/Plan - Impression/Plan Impression: right shoulder rct Operative Procedure: right shoulder arthroscopy with RCRALLIE Date to be Performed: 03/28/19
--- NOTE | 2019-03-28 11:48 | OP ---
Operative Note - Note: Operative Date: 03/28/19 Pre-Operative Diagnosis: right shoulder RTC tear, impingement syndrome Operation: right shoulder arthroscopy, subacromial decompression, mini open RTC repair, manipulation under anesthesia Implants: Arthrex Swvel Lock anchors x 2, fiber wire x 5 Post-Operative Diagnosis: Same as Pre-op Surgeon: Angel Godfrey Adolescent Counselor: Dimitrios Denise Anesthesiologist/MANAGER PACKAGE: Leida Russell Anesthesia: General, Local Specimens Removed: shavings Estimated Blood Loss (mls): 75 Drains, Volume Out (mls): 0 Blood Volume Replaced (mls): 0 Fluid Volume Replaced (mls): 1,000 Operative Report Dictated: Yes
[2019-03-28] MEDS ORDERED: ONDANSETRON 4 MG/2 ML VIAL IVPUSH PRN (12:51)
[2019-03-28] MEDS ORDERED: oxyCODONE HCL 5 MG TABLET PO PRN ×2 (12:51)
[2019-03-28] MEDS ORDERED: LACTATED RINGERS SOLUTION 1,000 ML IV SCH (13:00)
[2019-03-28 15:04] VITALS: BP 135/73; PULSE 91; TEMP 97.8
--- NOTE | 2019-03-29 09:07 | OP ---
DATE OF OPERATION: 03/28/2019 PREOPERATIVE DIAGNOSIS: Right shoulder impingement syndrome and rotator cuff tear. SURGEON: Rob Murrell MD ROCK SINGER: FRANCESCA Siddiqui PROCEDURE PERFORMED: Right shoulder arthroscopy, subacromial decompression, mini open rotator cuff repair, manipulation under anesthesia. DRAINS: None. COMPLICATIONS: None. BLOOD LOSS: 75 mL. BLOOD GIVEN: None. FLUID REPLACEMENT: PlasmaLyte 1000 mL. IMPLANTS: Two Arthrex SwiveLock anchors and 5 FiberWire sutures. DRAINS: None. INDICATIONS: The patient is a 69-year-old female with a preoperative diagnosis of right shoulder impingement syndrome and a rotator cuff tear. After understanding the potential risks, complications, alternatives and benefits of surgery versus nonsurgical treatment, the patient elected to undergo this procedure. PROCEDURE: The patient was brought to the operating room, peripheral IV placed, IV sedation given. IV Ancef 2 g was given. A right interscalene block was performed. LMA anesthesia was induced. She was placed into the beach-chair position with ample padding throughout. The bony landmarks were marked out around the right shoulder. Before she was prepped and draped, I did a manipulation under anesthesia. When I put her into full forward flexion and abduction, I was able to feel that I was tearing through some scar tissue. A posterior portal was established. A diagnostic glenohumeral arthroscopy was performed. The patient had a lot of fraying around the biceps tendon and possibly a labral tear. The undersurface of the rotator cuff was also frayed. There was one portion that it went all the way through, consistent with a full-thickness tear. There was no significant arthritis at the glenoid or the humerus. A anterior portal was established with a spinal needle. A number 15 scalpel blade and then a Green cannula introduced into the glenohumeral joint. A straight shaver was used to debride the frayed edges of the labrum and the undersurface of the rotator cuff and the biceps tendon. Once these fibers were removed, I was able to achieve better visualization. The probe was introduced, and I was able to see that the patient had a Ashburn complex and not a labral tear. The entire anterior labrum was probed and it was seen to be intact. The area was copiously irrigated and washed out. Our attention was then turned to the subacromial space. In the subacromial space, the patient had a tremendous amount of inflammatory bursitis. A lateral portal was established using the spinal needle. The Green cannula was introduced into the subacromial space and a soft tissue bursectomy/extensive debridement done with the ArthroCare wand. Once this was done, this exposed a very large subacromial spur. This was taken down with the 5.5-mm oval bur and then fine-tuned in reverse with the straight shaver. The clavicle had no spur. The AC joint looked good. I was able to clear the bursa from the top surface of the rotator cuff. Once this was done, I was able to see a full-thickness crescent-shaped tear through the entire supraspinatus. There were also areas of delamination. The area was freshened up with the ArthroCare wand. The surrounding synovitis was cauterized and removed. The bed where the rotator cuff would be repaired to was cleared of all soft tissue debris with the ArthroCare wand. Next, under direct visualization arthroscopically, using the [email or web address] needle passer, I put in 5 FiberWire sutures from the anterior to the posterior margin. It all came together and came down quite nicely. Next, I converted to a mini open repair approach. The lateral incision was extended by about 1 inch, up to the lateral edge of the acromion. Subcutaneous hemostasis was achieved with the Bovie cautery. First a Gelpi and then a Tricia retractor was used for visualization. Additional cauterization was done. Arthroscopy fluid was removed. I also used a Escobar elevator on the superior surface of the rotator cuff for further mobilization. Once this was done, I could directly visualize the rotator cuff. It was quite thick and had good tissue. The patient was, however, quite osteoporotic. I was able bring down the rotator cuff quite nicely to its landing bed. I used a rasp to roughen up its landing bed and to remove a small bony ridge. Next, I used 2 Arthrex SwiveLock suture anchors, the anterior one with 3 FiberWires/6 tails and the posterior one with 2 FiberWires/4 tails. I put the posterior one down first and then the anterior one. It all came down really well. The rotator cuff moves as a unit with the humerus. But when I put the SwiveLock anchors in, I could feel the patient had significant osteoporosis and lack of significant bone density. That being said, currently the repair is quite good and stable. The area was copiously irrigated and washed out. The anterior and posterior portals were closed with nylon sutures. Closure done with 0 Vicryl in the deltoid fascia, and 2-0 Vicryl in the deep dermal layer. Final skin reapproximation was done with a running subcuticular 3-0 V-Loc suture. It was then washed and dried, covered with SwiftSet glue, 2 small and 1 larger Aquacel dressing. The patient was extubated. There were no complications during the case. Total operative time was about 55 minutes. She was put into a shoulder immobilizer and brought to the ambulatory recovery room in stable condition. Total blood loss was about 75 mL. ROB MURRELL M.D. [id number]
== END 2019-03-28 15:15 | disposition home or self-care (01) ==
LOC: JASU-SURG 07:25
PROVIDERS: ATTEND Orthopaedic Surgery
PROC: 0RNJ4ZZ Release Right Shoulder Joint, Percutaneous Endoscopic Approach (ICD-10-PCS; principal; 2019-03-28 09:30)
PROC: 0LQ10ZZ Repair Right Shoulder Tendon, Open Approach (ICD-10-PCS; 2019-03-28 09:30)
DX: M75.41 Impingement syndrome of right shoulder (principal); M75.101 Unspecified rotator cuff tear or rupture of right shoulder, not specified as traumatic
CPT/HCPCS: 94760

== ENCOUNTER 2020-12-09 04:45 | Day surgery (SDC) | payer OTHER ==
[2020-12-04 16:13] VITALS: BMI 20.2
[~2020-12-09 04:45] MED LIST: ceFAZolin SODIUM 1 GM VIAL IVPB ONE
[2020-12-09] MEDS ORDERED: oxyCODONE HCL 5 MG TABLET PO PRN (14:15)
[2020-12-09] MEDS ORDERED: ACETAMINOPHEN INJECTION 100 ML IVPB ONE (14:59)
[2020-12-09] MEDS ORDERED: DEXMEDETOMIDINE HCL 200 MCG/2 ML IVPB ONE (15:05)
[2020-12-09] MEDS ORDERED: VASOPRESSIN 20 UNITS/ML VIAL IV ONE ×4 (15:09→15:12)
[2020-12-09] MEDS ORDERED: ceFAZolin SODIUM 1 GM VIAL IVPB ONE (15:30)
[2020-12-09] MEDS ORDERED: ONDANSETRON 4 MG/2 ML VIAL IVPUSH PRN (16:46)
[2020-12-09] MEDS ORDERED: LACTATED RINGERS SOLUTION 1,000 ML IV SCH (17:00)
[2020-12-09] MEDS: DEXTROSE 5%-0.45% SALINE 1,000 ML IV SCH (18:58)
[2020-12-09] MEDS: CEFAZOLIN 1 GM/D5W 1 GM/50 ML BAG IVPB SCH (18:58)
[2020-12-09] MEDS ORDERED: ACETAMINOPHEN 1000 MG/100 ML VIAL (NON FORMULARY) IVPB PRN (19:06)
[2020-12-09] MEDS ORDERED: PT OWN MED DRAWER 7, Y5N ONE (21:46)
[2020-12-10] MEDS: CEFAZOLIN 1 GM/D5W 1 GM/50 ML BAG IVPB SCH ×2 (01:58→09:16)
[2020-12-10] MEDS: DEXTROSE 5%-0.45% SALINE 1,000 ML IV SCH (02:22)
[2020-12-10] MEDS ORDERED: TAMSULOSIN HCL 0.4 MG CAP PO SCH (08:30)
[2020-12-10 09:34] LABS: BASO % 0.4 % (0-2.0); EOS % 0.9 % (0-4.5); HEMATOCRIT 37.3 % (32.4-45.2); HEMOGLOBIN 11.9 GM/dL (10.7-15.3); LYMPH % 11.9 % (8-40); MCH 25.7 pg (25.7-33.7); MEAN CELL VOLUME 80.3 fl (80-96); MEAN PLT VOLUME 9.9 fl (7.5-11.1); MONO % 6.9 % (3.8-10.2); NEUT % 79.9 % (42.8-82.8); PLATELET COUNT 218 10^3/uL (134-434); RBC 4.64 M/mm3 (3.60-5.2); RDW 12.8 % (11.6-15.6); WHITE BLOOD COUNT 14.1 K/mm3 (4.0-10.0)
[2020-12-10 09:35] LABS: CALCIUM 8.5 mg/dL (8.5-10.1)
[2020-12-10 09:38] LABS: BLOOD UREA NITROGEN 5.6 mg/dL (7-18)
[2020-12-10 09:41] LABS: CREATININE 0.5 mg/dL (0.55-1.3)
[2020-12-10 12:11] VITALS: BP 112/60; PULSE 80; TEMP 97.6
== END 2020-12-10 13:00 | disposition home or self-care (01) ==
LOC: JASU-SURG 04:45 → JASUSAT 04:45 → J6S 18:47 → JASUSAT 12-10 13:00
PROVIDERS: ATTEND Urology
PROC: 0TJB8ZZ Inspection of Bladder, Via Natural or Artificial Opening Endoscopic (ICD-10-PCS; 2020-12-09)
PROC: 0JQC0ZZ Repair Pelvic Region Subcutaneous Tissue and Fascia, Open Approach (ICD-10-PCS; principal; 2020-12-09 13:00)
DX: N81.10 Cystocele, unspecified (principal)
CPT/HCPCS: 36415; 80048; 85025; 94760; J0131

== ENCOUNTER 2021-10-16 10:37 | Emergency (ER) | payer MEDICARE, OTHER ==
[2021-10-16 10:48] VITALS: TEMP 98.1; BMI 20.6
[2021-10-16] MEDS ORDERED: SODIUM CHLORIDE 0.9% 500 ML INFUS.BAG IV ONE (11:47)
[2021-10-16] MEDS ORDERED: ACETAMINOPHEN 1000 MG/100 ML BAG IVPB ONE (11:47)
[2021-10-16] MEDS ORDERED: ACETAMINOPHEN INJECTION 100 ML IVPB ONE (12:14)
[2021-10-16 12:16] LABS: EPI CELLS 7 /uL (0-25.1); HYALINE CASTS 1 /uL (0-3.1); URINE APPEARANCE CLEAR; URINE BACTERIA 7 /uL (0-1359); URINE BILIRUBIN NEGATIVE (NEGATIVE); URINE COLOR YELLOW; URINE GLUCOSE (UA) NEGATIVE (NEGATIVE); URINE KETONE NEGATIVE (NEGATIVE); URINE LEUK ESTERASE TRACE (NEGATIVE); URINE NITRITE NEGATIVE (NEGATIVE); URINE PROTEIN NEGATIVE (NEGATIVE); URINE RBC 8 /uL (0-23.9); URINE UROBILINOGEN 0.2 mg/dL (0.2-1.0); URINE WBC 11 /uL (0-25.8)
[2021-10-16 12:43] LABS: BASO % 0.5 % (0-2.0); HEMATOCRIT 38.4 % (32.4-45.2); HEMOGLOBIN 12.9 GM/dL (10.7-15.3); LYMPH % 11.4 % (8-40); MCH 26.7 pg (25.7-33.7); MCHC 33.6 g/dl (32.0-36.0); MEAN CELL VOLUME 79.4 fl (80-96); MEAN PLT VOLUME 8.6 fl (7.5-11.1); MONO % 6.2 % (3.8-10.2); NEUT % 79.9 % (42.8-82.8); PLATELET COUNT 217 10^3/uL (134-434); RBC 4.83 M/mm3 (3.60-5.2); RDW 12.7 % (11.6-15.6); WHITE BLOOD COUNT 9.9 K/mm3 (4.0-10.0)
[2021-10-16 13:56] LABS: CALCIUM 9.3 mg/dL (8.5-10.1)
[2021-10-16 13:57] LABS: ALBUMIN 3.4 g/dl (3.4-5.0); BLOOD UREA NITROGEN 11.4 mg/dL (7-18); MAGNESIUM 2.1 mg/dL (1.8-2.4)
[2021-10-16 13:59] LABS: CREATININE 0.5 mg/dL (0.55-1.3)
[2021-10-16 14:00] LABS: PHOSPHOROUS 3.4 mg/dL (2.5-4.9)
[2021-10-16 14:01] LABS: BILIRUBIN,TOTAL 0.4 mg/dL (0.2-1)
[2021-10-16 14:46] VITALS: BP 134/78; PULSE 75
== END 2021-10-16 14:46 | disposition home or self-care (01) ==
LOC: JER 10:37
PROC: 3E033GC Introduction of Other Therapeutic Substance into Peripheral Vein, Percutaneous Approach (ICD-10-PCS; principal; 2021-10-16)
DX: R19.7 Diarrhea, unspecified (principal); B34.9 Viral infection, unspecified
CPT/HCPCS: 36415; 80053; 81003; 83690; 83735; 84100; 85025; 87086; 96374; 99284-25

== ENCOUNTER 2022-03-26 04:19 | Day surgery (SDC) | payer MEDICARE, OTHER ==
[2022-03-24 16:18] VITALS: BMI 20.9
[2022-03-26] MEDS ORDERED: LIDOCAINE HCL 1%, 10 MG/ML (20ML VIAL) ONE (14:36)
[2022-03-26] MEDS ORDERED: MIDAZOLAM HCL 2 MG/2 ML SINGLE DOSE VIAL ONE (16:33)
[2022-03-26] MEDS ORDERED: PROPOFOL 20 ML ONE (16:33)
[2022-03-26] MEDS ORDERED: ceFAZolin SODIUM 1 GM VIAL IVPB ONE (17:08)
[2022-03-26] MEDS ORDERED: LIDOCAINE HCL 2% 100 MG/5 ML DISP.SYRIN ONE (17:28)
[2022-03-26] MEDS ORDERED: BACITRACIN 15 GM TUBE TOPICAL OINTMENT TP ONE (18:40)
[2022-03-26] MEDS ORDERED: ACETAMINOPHEN 325 MG TABLET (FP) PO PRN ×3 (18:46→19:00)
[2022-03-26] MEDS ORDERED: IBUPROFEN 800 MG/8 ML IJ IVPB PRN (18:49)
[2022-03-26] MEDS ORDERED: PROMETHAZINE HCL 25 MG/1 ML VIAL IVPUSH PRN (18:49)
[2022-03-26] MEDS ORDERED: ONDANSETRON 4 MG/2 ML VIAL IVPUSH PRN (18:49)
[2022-03-26] MEDS ORDERED: DEXTROSE 5%-0.45% SALINE 1,000 ML IV SCH (19:00)
[2022-03-26] MEDS ORDERED: oxyCODONE HCL 5 MG TABLET PO PRN (19:00)
[2022-03-26 20:25] VITALS: BP 148/69; PULSE 67; RESP 16; TEMP 98.1
== END 2022-03-27 15:53 | disposition home or self-care (01) ==
LOC: JASU-SURG 04:19 → JASUSAT 04:19 → J6S 21:34 → JASUSAT 03-27 15:53
PROVIDERS: ATTEND Urology
PROC: 0JQC0ZZ Repair Pelvic Region Subcutaneous Tissue and Fascia, Open Approach (ICD-10-PCS; principal; 2022-03-26 14:00)
PROC: 0JQC0ZZ Repair Pelvic Region Subcutaneous Tissue and Fascia, Open Approach (ICD-10-PCS; 2022-03-26 14:00)
DX: N81.10 Cystocele, unspecified (principal); N39.3 Stress incontinence (female) (male)
CPT/HCPCS: 88302-TC; 88304-TC; 94010; 94760

== ENCOUNTER 2022-07-15 19:25 | Emergency (ER) | payer MEDICARE, OTHER ==
[2022-07-15 19:45] VITALS: BP 153/73; PULSE 81; RESP 18; TEMP 97.8; BMI 20.9
== END 2022-07-15 21:51 | disposition home or self-care (01) ==
LOC: FER 19:25
DX: S00.03XA Contusion of scalp, initial encounter (principal); W01.0XXA Fall on same level from slipping, tripping and stumbling without subsequent striking against object, initial encounter
CPT/HCPCS: 70450-TC; 72100-TC-FY; 72170-TC-FY; 99284-25

== ENCOUNTER 2022-10-13 09:25 | Day surgery (SDC) | payer MEDICARE, OTHER ==
[2022-10-07 12:47] VITALS: BMI 20.7
[2022-10-13] MEDS ORDERED: PROPOFOL 60 ML ONE (12:02)
[2022-10-13 12:30] VITALS: RESP 18; TEMP 97
[2022-10-13 12:58] VITALS: BP 124/61; PULSE 77
== END 2022-10-13 13:27 | disposition home or self-care (01) ==
LOC: FASU-ENDO 09:25
PROVIDERS: ATTEND Internal Medicine Gastroenterology
PROC: 0DB78ZX Excision of Stomach, Pylorus, Via Natural or Artificial Opening Endoscopic, Diagnostic (ICD-10-PCS; 2022-10-13)
PROC: 0DB48ZX Excision of Esophagogastric Junction, Via Natural or Artificial Opening Endoscopic, Diagnostic (ICD-10-PCS; 2022-10-13)
PROC: 0DB98ZX Excision of Duodenum, Via Natural or Artificial Opening Endoscopic, Diagnostic (ICD-10-PCS; principal; 2022-10-13 12:03)
DX: K29.50 Unspecified chronic gastritis without bleeding (principal); K21.00 Gastro-esophageal reflux disease with esophagitis, without bleeding
CPT/HCPCS: 88305-TC; 88342-TC

== ENCOUNTER 2023-01-05 09:47 | Day surgery (SDC) | payer MEDICARE, OTHER ==
[2022-12-20 15:56] VITALS: BMI 20.7
[2023-01-05 12:22] VITALS: RESP 16; TEMP 96.8
[2023-01-05 13:36] VITALS: BP 142/63; PULSE 78
== END 2023-01-05 13:15 | disposition home or self-care (01) ==
LOC: FASU-ENDO 09:47
PROVIDERS: ATTEND Internal Medicine Gastroenterology
PROC: 0DBL8ZX Excision of Transverse Colon, Via Natural or Artificial Opening Endoscopic, Diagnostic (ICD-10-PCS; 2023-01-05)
PROC: 0DBM8ZX Excision of Descending Colon, Via Natural or Artificial Opening Endoscopic, Diagnostic (ICD-10-PCS; 2023-01-05)
PROC: 0DBK8ZX Excision of Ascending Colon, Via Natural or Artificial Opening Endoscopic, Diagnostic (ICD-10-PCS; principal; 2023-01-05 11:49)
DX: K57.30 Diverticulosis of large intestine without perforation or abscess without bleeding (principal); K64.1 Second degree hemorrhoids; R19.7 Diarrhea, unspecified; R10.9 Unspecified abdominal pain

== ENCOUNTER 2023-09-09 11:00 | Emergency (ER) | payer MEDICARE, OTHER ==
[2023-09-09 11:05] VITALS: PULSE 69; RESP 18; TEMP 97.4; BMI 32.9
[2023-09-09] MEDS ORDERED: ACETAMINOPHEN INJECTION 100 ML IVPB ONE (12:14)
[2023-09-09 12:18] LABS: BASO % 0.7 % (0-2.0); EOS % 3.4 % (0-4.5); HEMATOCRIT 41.5 % (32.4-45.2); HEMOGLOBIN 13.4 GM/dL (10.7-15.3); LYMPH % 15.5 % (8-40); MCH 26.3 pg (25.7-33.7); MCHC 32.2 g/dl (32.0-36.0); MEAN CELL VOLUME 81.7 fl (80-96); MEAN PLT VOLUME 9.2 fl (7.5-11.1); MONO % 6.8 % (3.8-10.2); NEUT % 73.6 % (42.8-82.8); PLATELET COUNT 231 10^3/uL (134-434); RBC 5.08 M/mm3 (3.60-5.2); RDW 12.9 % (11.6-15.6); WHITE BLOOD COUNT 8.6 K/mm3 (4.0-10.0)
[2023-09-09] MEDS: ACETAMINOPHEN 1000 MG/100 ML BAG IVPB ONE (12:22)
[2023-09-09] MEDS: SODIUM CHLORIDE 0.9% 500 ML INFUS.BAG IV ONE (12:22)
[2023-09-09 12:24] LABS: INR 1.08 (0.83-1.09); PROTHROMBIN TIME (PATIENT) 12.5 SEC (9.7-13.0)
[2023-09-09 12:27] LABS: ACTIVATED PTT 29.1 SECONDS (25.2-36.5)
[2023-09-09 12:29] LABS: PH,URINE 6.5 (5.0-8.0); URINE APPEARANCE CLEAR; URINE BILIRUBIN NEGATIVE (NEGATIVE); URINE COLOR YELLOW; URINE GLUCOSE (UA) NEGATIVE (NEGATIVE); URINE KETONE NEGATIVE (NEGATIVE); URINE LEUK ESTERASE 1+ (NEGATIVE); URINE NITRITE NEGATIVE (NEGATIVE); URINE PROTEIN NEGATIVE (NEGATIVE); URINE UROBILINOGEN 0.2 mg/dL (0.2-1.0)
[2023-09-09 12:39] LABS: POTASSIUM 3.7 mmol/L (3.5-5.1)
[2023-09-09 12:41] LABS: CALCIUM 9.7 mg/dL (8.5-10.1)
[2023-09-09] MEDS ORDERED: ONDANSETRON 4 MG/2 ML VIAL ONE (12:41)
[2023-09-09 12:42] LABS: ALBUMIN 3.1 g/dl (3.4-5.0); BLOOD UREA NITROGEN 11.4 mg/dL (7-18); MAGNESIUM 1.9 mg/dL (1.8-2.4)
[2023-09-09] MEDS: ONDANSETRON 4 MG/2 ML VIAL IVPUSH ONE (12:44)
[2023-09-09 12:45] LABS: EPI CELLS 3.6 /uL (0-25.1); URINE BACTERIA 3.8 /uL (0-1359); URINE RBC 2.4 /uL (0-23.9); URINE WBC 19.5 /uL (0-25.8)
[2023-09-09 12:45] LABS: CREATININE 0.7 mg/dL (0.55-1.3)
[2023-09-09 12:46] LABS: BILIRUBIN,TOTAL 0.3 mg/dL (0.2-1); TOT PROT 6.9 g/dl (6.4-8.2)
[2023-09-09 16:48] VITALS: BP 154/68
== END 2023-09-09 17:03 | disposition home or self-care (01) ==
LOC: JER 11:00
PROC: 3E033NZ Introduction of Analgesics, Hypnotics, Sedatives into Peripheral Vein, Percutaneous Approach (ICD-10-PCS; principal; 2023-09-09)
PROC: 3E033GC Introduction of Other Therapeutic Substance into Peripheral Vein, Percutaneous Approach (ICD-10-PCS; 2023-09-09)
DX: R53.1 Weakness (principal); R19.7 Diarrhea, unspecified; R42 Dizziness and giddiness; H53.8 Other visual disturbances; R51.9 Headache, unspecified; R11.0 Nausea; R00.2 Palpitations; N39.0 Urinary tract infection, site not specified
CPT/HCPCS: 36415; 71045-TC-FY; 74176-TC; 80053; 81003; 83735; 84484; 85025; 85610; 85730; 87086; 93005; 93010; 96374; 96375; 99285-25; J0131

== ENCOUNTER 2024-01-25 09:13 | Day surgery (SDC) | payer MEDICARE, OTHER ==
[2024-01-18 10:22] VITALS: BMI 20.9
[2024-01-25 11:40] VITALS: TEMP 97.9
[2024-01-25 11:49] VITALS: BP 135/67; PULSE 58; RESP 19
== END 2024-01-25 12:15 | disposition home or self-care (01) ==
LOC: FASU-ENDO 09:13
PROVIDERS: ATTEND Internal Medicine Gastroenterology
PROC: 0DB68ZX Excision of Stomach, Via Natural or Artificial Opening Endoscopic, Diagnostic (ICD-10-PCS; 2024-01-25)
PROC: 0DB48ZX Excision of Esophagogastric Junction, Via Natural or Artificial Opening Endoscopic, Diagnostic (ICD-10-PCS; 2024-01-25)
PROC: 0DB98ZX Excision of Duodenum, Via Natural or Artificial Opening Endoscopic, Diagnostic (ICD-10-PCS; principal; 2024-01-25 11:01)
DX: K29.50 Unspecified chronic gastritis without bleeding (principal); K21.00 Gastro-esophageal reflux disease with esophagitis, without bleeding; K44.9 Diaphragmatic hernia without obstruction or gangrene; K31.7 Polyp of stomach and duodenum
CPT/HCPCS: 88305-TC; 88342-TC